=== PATIENT | male | born 1980 | race African-American/Black ===

== ENCOUNTER 2017-03-27 01:20 | Emergency (ER) | payer SELFPAY ==
[~2017-03-27] VITALS: Ht 154.9 cm; Wt 85.0 kg
[2017-03-27 02:47] VITALS: BP 165/113
== END 2017-03-27 02:49 ==
LOC: EME 01:20
DX: S00.83XA Contusion of other part of head, initial encounter (principal); S20.459A Superficial foreign body of unspecified back wall of thorax, initial encounter; Y35.893A Legal intervention involving other specified means, suspect injured, initial encounter; F31.9 Bipolar disorder, unspecified; I10 Essential (primary) hypertension; F20.9 Schizophrenia, unspecified; F17.200 Nicotine dependence, unspecified, uncomplicated
CPT/HCPCS: 70450; 70486; 99281; 99283